=== PATIENT | female | born 1990 | race Two or more races ===

== ENCOUNTER 2021-05-14 19:35 | Emergency (ER) | payer OTHER ==
[2021-05-14 19:45] VITALS: BP 113/93
--- NOTE | 2021-05-14 20:53 | ED Physician Documentation ---
PD HPI HEENT - Stated complaint Stated Complaint: BILAT EAR PX/CRISTIANO/HEADACHE/PHLEGM - Chief complaint Chief Complaint: Heent - History obtained from History obtained from: Patient (30-year-old woman developed left ear pain about 10 days ago. More recently has developed some sinus pressure, sore throat and cough. No fevers or shortness of breath.) Review of Systems Ten Systems: 10 systems reviewed and negative Constitutional: denies: Fever, Chills Eyes: reports: Reviewed and negative Nose: reports: Rhinorrhea / runny nose, Sinus pressure / pain Throat: reports: Sore throat Respiratory: reports: Cough. denies: Dyspnea PD PAST MEDICAL HISTORY - Present Medications Home Medications: Ambulatory Orders Medication Instructions Recorded Confirmed Neomycin/Polymyx/Hc Otic Drops 4 drops OT TID #1 bottle 05/14/21 [Cortisporin Ear Susp] - Allergies Allergies/Adverse Reactions: Allergies Allergy/AdvReac Type Severity Reaction Status Date / Time No Known Drug Allergies Allergy Verified 05/14/21 19:45 PD ED PE NORMAL - Vitals Vital signs reviewed: Yes - General General: Alert and oriented X 3, No acute distress - HEENT HEENT: Pharynx benign, Other (She has moderate left and mild external right otitis. There is no otitis media. No sinus tenderness) - Neck Neck: Supple, no meningeal sign, No bony TTP - Cardiac Cardiac: RRR, No murmur - Respiratory Respiratory: No respiratory distress, Clear bilaterally - Abdomen Abdomen: Soft, Non tender - Back Back: No CVA TTP, No spinal TTP - Derm Derm: Normal color, Warm and dry - Extremities Extremities: No edema, No calf tenderness / cord - Neuro Neuro: Alert and oriented X 3, Normal speech Results - Vitals Vitals: Vital Signs - 24 hr 05/14/21 19:43 Temperature 36.4 C L Heart Rate 95 Respiratory 16 Rate Blood Pressure 113/93 H O2 Saturation 98 Oxygen O2 Source Room air PD MEDICAL DECISION MAKING - ED course ED course: 30-year-old woman with combination of a viral URI without evidence of bacterial superinfection but also external otitis which we treated with topical antibiotics. Otherwise recommended Sudafed and she requested a refill of Albuterol. Departure - Departure Disposition: 01 Home, Self Care Clinical Impression: Viral URI with cough External otitis Qualifiers: Otitis externa type: swimmer's ear Chronicity: acute Laterality: bilateral Qualified Code(s): H60.333 - Swimmer's ear, bilateral Condition: Good Record reviewed to determine appropriate education?: Yes Instructions: ED Viral Syndrome, ED Otitis Externa Prescriptions: Neomycin/Polymyx/Hc Otic Drops [Cortisporin Ear Susp] 4 drops OT TID #1 bottle Comments: Sudafed or Mucinex D available [id number] as needed for the congestion. Return for new or worsening symptoms. Think the ear canal infection will go away quickly with the topical antibiotics. You have a Covid test pending. You need to self quarantine until the result is done and negative. Do not leave your house. Do not get near anybody. The results should be done in 48 to 72 hours. We will call with a positive result, the fastest way to get a negative result for confirmation though is to go to the hospital website at [email or web address], click on the my [facility] tab and sign up for the patient portal. If any friends or family get sick and would like to have a Covid test done, but do not have signs or symptoms that would necessitate being hospitalized, there are multiple local options for Covid testing. [facility] keeps an updated list of testing and vaccination options at: [email or web address].
== END 2021-05-14 21:08 | disposition home or self-care (01) ==
LOC: ED 19:35
DX: H60.333 Swimmer's ear, bilateral (principal); J06.9 Acute upper respiratory infection, unspecified; Z20.822 Contact with and (suspected) exposure to COVID-19
CPT/HCPCS: 99283

== ENCOUNTER 2021-08-03 17:52 | Emergency (ER) | payer OTHER ==
--- OUTSIDE RECORDS SUMMARY | 2021-08-03 18:20 | EXTERNAL MEDICAL SUMMARY RPT | Continuity of Care Document ---
:1990 Author Organization [facility] Address [address] [id number] Phone Allergies No information. Encounters No information. Medications No information. Problems date description facility [id number] [facility] Results No information.
[2021-08-03] MEDS ORDERED: PSEUDOEPHEDRINE 30 MG TABLET PO STA (21:21)
[2021-08-03] MEDS ORDERED: CETIRIZINE 10 MG TABLET PO STA (21:22)
--- NOTE | 2021-08-03 21:25 | ED Physician Documentation ---
History of Present Illness - Stated complaint Stated Complaint: L EAR PX - Chief complaint Chief Complaint: Heent - History obtained from History obtained from: Patient - History of Present Illness Timing: Today Pain level max: 5 Pain level now: 5 - Additonal information Additional information: Patient is a 30-year-old female who presents to the emergency department with left ear pain. This been intermittent for the past several months. She has been seen in multiple emergency departments for ear pain. Diagnosed with otitis externa x2. Has not seen an ENT. No fevers. No chills. No rhinorrhea or congestion. She states it feels like there is a "a draft" in her ear. Has not had any drainage. Has been on ciprofloxacin otic as well as Cortisporin otic in the past. Denies any trauma. Review of Systems Constitutional: denies: Fever, Chills Respiratory: denies: Cough GI: denies: Nausea, Vomiting, Diarrhea : denies: Now EGA Skin: denies: Rash Musculoskeletal: denies: Neck pain, Back pain PD PAST MEDICAL HISTORY - Past Medical History Past Medical History: Yes Other Past Medical History: Rectal Prolapse - Past Surgical History Past Surgical History: Yes General: Other - Present Medications Home Medications: Ambulatory Orders Medication Instructions Recorded Confirmed Neomycin/Polymyx/Hc Otic Drops 4 drops OT TID #1 bottle 05/14/21 [Cortisporin Ear Susp] Cetirizine HCl/Pseudoephedrine 1 each PO BID PRN #30 ea 08/03/21 [Zyrtec-D Tablet] Ciproflox/Dexameth Otic Drops 4 drops OT BID #1 bottle 08/03/21 [Ciprodex] - Allergies Allergies/Adverse Reactions: Allergies Allergy/AdvReac Type Severity Reaction Status Date / Time No Known Drug Allergies Allergy Verified 08/03/21 17:55 - Social History Does the pt smoke?: No Smoking Status: Never smoker Does the pt drink ETOH?: No Does the pt have substance abuse?: No - Immunizations Immunizations are current?: Yes - POLST Patient has POLST: No PD ED PE NORMAL - Vitals Vital signs reviewed: Yes - General General: Alert and oriented X 3, No acute distress, Well developed/nourished - HEENT HEENT: PERRL, Moist mucous membranes, Pharynx benign, Other (R TM normal. L TM Is retracted, clear. Mild erythema of the canal. Otherwise normal exam) - Neck Neck: Supple, no meningeal sign, No adenopathy - Cardiac Cardiac: RRR - Respiratory Respiratory: No respiratory distress, Clear bilaterally - Derm Derm: Warm and dry - Neuro Neuro: Alert and oriented X 3 - Psych Psych: Normal mood, Normal affect Results - Vitals Vitals: Vital Signs - 24 hr 08/03/21 08/03/21 08/03/21 17:56 20:49 21:35 Temperature 36.5 C 36.5 C Heart Rate 70 78 68 Respiratory 16 16 16 Rate Blood Pressure 104/82 H 115/100 H 118/81 H O2 Saturation 99 99 99 Oxygen O2 Source Room air PD MEDICAL DECISION MAKING - ED course Complexity details: considered differential, d/w patient ED course: 30-year-old female with left ear pain. Unclear etiology, possible eustachian tube dysfunction as the eardrum does appear retracted. We will trial on decongestants and as she has visited several clinics in the emergency department for same, I think it is reasonable she see an ear nose and throat doctor for further care. Patient counseled regarding signs and symptoms for which I believe and urgent re-evaluation would be necessary. Patient with good understanding of and agreement to plan and is comfortable going home at this time This document was made in part using voice recognition software. While efforts are made to proofread this document, sound alike and grammatical errors may occur. Departure - Departure Disposition: 01 Home, Self Care Clinical Impression: Eustachian tube dysfunction Qualifiers: Laterality: left Qualified Code(s): H69.82 - Other specified disorders of Eustachian tube, left ear External otitis Qualifiers: Otitis externa type: unspecified type Chronicity: acute Laterality: left Qualified Code(s): H60.502 - Unspecified acute noninfective otitis externa, left ear Condition: Good Instructions: ED Otitis Externa, ED Obstruction Eustachian Tube Ch Follow-Up: your,doctor in 1 week [Other] [facility] [Provider Group] Prescriptions: Ciproflox/Dexameth Otic Drops [Ciprodex] 4 drops OT BID #1 bottle Cetirizine HCl/Pseudoephedrine [Zyrtec-D Tablet] 1 each PO BID PRN #30 ea PRN Reason: nasal congestion Comments: Please follow-up with ENT for further care. Return if you worsen. Your prescriptions were sent to [facility] in [place]. Discharge Date/Time: 08/03/21 21:35
[2021-08-03 21:36] VITALS: BP 118/81
== END 2021-08-03 21:35 | disposition home or self-care (01) ==
LOC: ED 17:52
DX: H69.82 Other specified disorders of Eustachian tube, left ear (principal); H60.502 Unspecified acute noninfective otitis externa, left ear
CPT/HCPCS: 99282; A9270

== ENCOUNTER 2023-11-16 08:00 | Outpatient (CLI) | payer OTHER ==
[2023-11-17 00:49] LABS: BACTERIAL VAGINOSIS DNA NEGATIVE (NEGATIVE); CANDIDA GLABRATA DNA NEGATIVE (NEGATIVE); CANDIDA GROUP DNA NEGATIVE (NEGATIVE); CANDIDA KRUSEI DNA NEGATIVE (NEGATIVE); TRICHOMONAS VAGINALIS DNA NEGATIVE (NEGATIVE)
== END 2023-11-16 23:59 | disposition home or self-care (01) ==
LOC: LAB.N 08:00
PROVIDERS: ATTEND Physician Assistant Medical
DX: N76.0 Acute vaginitis (principal)
CPT/HCPCS: 81514